=== PATIENT | male | born 1960 | race Caucasian/White ===

== ENCOUNTER 2022-02-09 16:01 | Inpatient (IN) ==
[2022-02-09 16:30] LABS: Basophils # 0.1 10*3/uL (0.0-0.2); Basophils % 0.3 % (0.0-0.8); Hemoglobin 19.6 GM/DL (14.0-18.0); Immature Granulocytes % 1.2 %; Immature Granulocytes Absolute 0.22 #; Lymphocytes % 5.3 % (21.2-54.2); Mean Corpuscular HGB Conc 31.2 GM/DL (32-36); Mean Platelet Volume 10.4 FL (9.6-12.0); Monocytes # 1.4 10*3/uL (0.11-0.8); Monocytes % 7.5 % (1.7-12.7); Neutrophils % 85.7 % (38.7-73.9); Platelet Count 209 T/CUMM (130-400); Red Blood Count 7.06 MC/CUMM (3.8-5.5); Red Cell Distribution Width 14.2 % (9.3-17.3); White Blood Count 18.9 T/CUMM (4-12)
[2022-02-09 16:35] LABS: Hematocrit 62.8 VOL% (42.0-52.0)
[2022-02-09 16:43] LABS: Alanine Aminotransferase 43 U/L (16-61); Albumin > 5.0 G/DL (3.4-5.0); Alkaline Phosphatase 95 U/L (45-117); Aspartate Amino Transferase 19 U/L (0-37); Blood Urea Nitrogen 25 MG/DL (7-18); Calcium 9.8 MG/DL (8.5-10.1); Carbon Dioxide 12 MMOL/L (21-32); Chloride 105 MMOL/L (98-107); Glucose 194 MG/DL (74-106); Osmolality,Calculated 283.7 MOS/KG (273-304); Potassium 5.2 MMOL/L (3.5-5.1); Sodium 138 MMOL/L (136-145); Total Protein 8.8 G/DL (6.4-8.2)
[2022-02-09] MEDS ORDERED: ONDANSETRON 4 MG/2 ML VIAL IV STA ×2 (18:18→21:13)
[2022-02-09] MEDS ORDERED: SODIUM CHLORIDE 0.9% 2,000 ML IV STA (18:18)
[2022-02-09] MEDS ORDERED: PANTOPRAZOLE 40 MG VIAL IV STA (18:21)
[2022-02-09 18:46] LABS: Arterial Base Excess iSTAT -19 MMOL/L (-2.5-2.5); Arterial Bicarbonate iSTAT 7.5 MMOL/L (20-26); Arterial O2 Saturation iSTAT 97 % (95-100); Arterial PCO2 iSTAT 22 MM HG (35-48); Arterial PO2 iSTAT 111 MM HG (80-95); Arterial Total CO2 iSTAT 8 MMO/L (23-27)
[2022-02-09 19:32] LABS: Bacteria,Urine Occasional /HPF (Few); Bilirubin,Urine Negative (Negative); Blood, Urine Moderate mg/dL (Negative); Glucose,Urine (UA) >=500 mg/dL (Negative); Hyaline Casts,Urine 16 /LPF (0-3); Ketones,Urine 80 mg/dL (Negative); Mucus,Urine Occasional /LPF (Occasional); Nitrite,Urine Negative (Negative); Protein,Urine 100 mg/dL (Negative); RBC,Urine 6 /HPF (0-4); Urine Appearance CLEAR (Clear); Urine Color Yellow (Yellow); Urine Specific Gravity 1.015 (1.001-1.035); Urine Urobilinogen < 2.0 eU/dL (<2.0)
[2022-02-09 21:25] LABS: Risk Ratio 2.47; VLDL Cholesterol 28.2 MG/DL
[2022-02-09] MEDS ORDERED: POTASSIUM CHLORIDE RIDER 10 MEQ/100 ML PREMIX IV PRN (21:31)
[2022-02-09] MEDS ORDERED: SODIUM PHOSPHATE INJ 22.5 MMOL in SODIUM CHLORIDE 0.9% 250 ML IV PRN (21:31)
[2022-02-09] MEDS ORDERED: SODIUM BICARB INJ 100 MEQ in STERILE WATER INJ 400 ML IV PRN (21:31)
[2022-02-09] MEDS ORDERED: MAGNESIUM SULF RIDER 2 GM/50 ML PREMIX IV PRN (21:31)
[2022-02-09] MEDS ORDERED: MAGNESIUM SULF RIDER 4 GM/100 ML PREMIX IV PRN (21:31)
[2022-02-09] MEDS ORDERED: ALBUTEROL 2.5 MG/3 ML NEB RESP TX PRN (21:36)
[2022-02-09] MEDS ORDERED: ONDANSETRON 4 MG/2 ML VIAL IV PRN (21:36)
[2022-02-09] MEDS ORDERED: ACETAMINOPHEN 325 MG TABLET PO PRN (21:36)
[2022-02-09] MEDS ORDERED: DOCUSATE SODIUM 100 MG CAPSULE PO PRN (21:36)
[2022-02-09] MEDS ORDERED: DEXTROSE 10% 250 ML BAG IV PRN ×2 (21:39→21:40)
[2022-02-10] MEDS: SODIUM CHLORIDE 0.9% 1,000 ML IV SCH ×2 (00:09→02:20)
[2022-02-10 00:20] LABS: Calcium 8.3 MG/DL (8.5-10.1); Osmolality,Calculated 289.3 MOS/KG (273-304); Potassium 5.2 MMOL/L (3.5-5.1)
[2022-02-10] MEDS: INSULIN REGULAR 100 UNIT/ML SUBCUT SCH ×4 (01:30→16:10)
[2022-02-10] MEDS ORDERED: SODIUM CHLORIDE 0.9% 1,000 ML IV SCH (03:00)
[2022-02-10 04:27] LABS: Basophils % 0.1 % (0.0-0.8); Eosinophils % 0.1 % (0.00-10.9); Hematocrit 45.4 VOL% (42.0-52.0); Hemoglobin 14.8 GM/DL (14.0-18.0); Immature Granulocytes % 0.7 %; Immature Granulocytes Absolute 0.09 #; Lymphocytes # 0.7 10*3/uL (1.4-4.0); Lymphocytes % 5.4 % (21.2-54.2); Mean Corpuscular HGB Conc 32.6 GM/DL (32-36); Mean Corpuscular Volume 86.8 FL (87-102); Mean Platelet Volume 10.4 FL (9.6-12.0); Monocytes # 1.7 10*3/uL (0.11-0.8); Monocytes % 12.7 % (1.7-12.7); Platelet Count 166 T/CUMM (130-400); Red Blood Count 5.23 MC/CUMM (3.8-5.5); Red Cell Distribution Width 13.5 % (9.3-17.3); White Blood Count 13.2 T/CUMM (4-12)
[2022-02-10 04:30] LABS: ABG Base Excess -10.9 MMOL/L (-2.5-2.5); ABG HCO3 16.1 MMOL/L (20-26); ABG PCO2 27.9 MM HG (35-48); ABG PH 7.311 (7.35-7.45); ABG TCO2 12.1 MMOL/L (23-27)
[2022-02-10 04:49] LABS: Phosphorous 1.8 MG/DL (2.5-4.9)
[2022-02-10 04:51] LABS: Albumin 3.2 G/DL (3.4-5.0); Bilirubin,Total 0.6 MG/DL (0.20-1.00); Calcium 7.3 MG/DL (8.5-10.1); Potassium 4.2 MMOL/L (3.5-5.1)
[2022-02-10] MEDS ORDERED: GLUCAGON 1 MG VIAL IM PRN ×2 (07:22→11:28)
[2022-02-10] MEDS ORDERED: DEXTROSE 10% 250 ML BAG IV PRN (07:28)
[2022-02-10 08:53] LABS: Calcium 7.7 MG/DL (8.5-10.1); Osmolality,Calculated 285.3 MOS/KG (273-304)
[2022-02-10] MEDS ORDERED: INSULIN GLARGINE 100 UNIT/ML SUBCUT ONE (09:00)
[2022-02-10] MEDS: PANTOPRAZOLE 40 MG TABLET PO SCH (09:40)
[2022-02-10] MEDS: ENOXAPARIN 40 MG/0.4 ML SYRINGE SUBCUT SCH (09:40)
[2022-02-10] MEDS: SODIUM CHLORIDE 0.45% 1,000 ML IV SCH ×2 (09:46→16:10)
[2022-02-10] MEDS ORDERED: DEXTROSE 50% 25 GM/50 ML VIAL IV PRN (11:28)
[2022-02-10 12:43] LABS: Calcium 7.6 MG/DL (8.5-10.1); Potassium 4.5 MMOL/L (3.5-5.1)
[2022-02-10 17:13] LABS: Calcium 7.9 MG/DL (8.5-10.1); Potassium 4.1 MMOL/L (3.5-5.1)
[2022-02-10 21:05] LABS: Calcium 7.9 MG/DL (8.5-10.1); Osmolality,Calculated 281.5 MOS/KG (273-304); Potassium 3.9 MMOL/L (3.5-5.1)
[2022-02-11] MEDS: INSULIN REGULAR 100 UNIT/ML SUBCUT SCH ×3 (00:32→13:29)
[2022-02-11] MEDS: SODIUM CHLORIDE 0.45% 1,000 ML IV SCH ×2 (02:36→10:53)
[2022-02-11 05:47] LABS: Basophils % 0.5 % (0.0-0.8); Eosinophils # 0.1 10*3/uL (0.0-0.87); Eosinophils % 1.2 % (0.00-10.9); Hemoglobin 13.9 GM/DL (14.0-18.0); Immature Granulocytes % 0.5 %; Immature Granulocytes Absolute 0.03 #; Lymphocytes # 1.1 10*3/uL (1.4-4.0); Lymphocytes % 17.1 % (21.2-54.2); Mean Corpuscular HGB Conc 33.1 GM/DL (32-36); Mean Corpuscular Volume 85.9 FL (87-102); Mean Platelet Volume 10.7 FL (9.6-12.0); Monocytes # 0.7 10*3/uL (0.11-0.8); Monocytes % 11.2 % (1.7-12.7); Neutrophils % 69.5 % (38.7-73.9); Platelet Count 134 T/CUMM (130-400); Red Blood Count 4.89 MC/CUMM (3.8-5.5); Red Cell Distribution Width 13.7 % (9.3-17.3); White Blood Count 6.6 T/CUMM (4-12)
[2022-02-11 05:58] LABS: Bilirubin,Total 0.4 MG/DL (0.20-1.00); Calcium 8.2 MG/DL (8.5-10.1); Potassium 3.6 MMOL/L (3.5-5.1); Total Protein 5.5 G/DL (6.4-8.2)
[2022-02-11 06:06] LABS: Albumin 3.1 G/DL (3.4-5.0); Bilirubin,Direct 0.16 MG/DL (0.0-0.20); Bilirubin,Indirect 0.2 MG/DL (0.0-1.0); Bilirubin,Total 0.4 MG/DL (0.20-1.00); Calcium 8.2 MG/DL (8.5-10.1); Potassium 4.2 MMOL/L (3.5-5.1); Thyroid Stimulating Hormone 1.54 uIU/ml (0.358-3.74); Total Protein 5.2 G/DL (6.4-8.2)
[2022-02-11 06:51] LABS: Platelet Estimate Adequate
[2022-02-11 06:52] LABS: Anisocytosis 1+
[2022-02-11] MEDS ORDERED: TAMSULOSIN 0.4 MG CAPSULE PO SCH (09:00)
[2022-02-11] MEDS ORDERED: INSULIN GLARGINE 100 UNIT/ML SUBCUT SCH (09:00)
[2022-02-11] MEDS ORDERED: LOSARTAN 50 MG TABLET PO SCH (09:00)
[2022-02-11] MEDS ORDERED: EZETIMIBE 10 MG TABLET PO SCH (09:00)
[2022-02-11] MEDS ORDERED: PIOGLITAZONE 15 MG TABLET PO SCH (09:00)
[2022-02-11] MEDS: ENOXAPARIN 40 MG/0.4 ML SYRINGE SUBCUT SCH (10:05)
[2022-02-11] MEDS: PANTOPRAZOLE 40 MG TABLET PO SCH (10:08)
[2022-02-11 11:45] VITALS: BP 134/71
[2022-02-11] MEDS ORDERED: ROSUVASTATIN 20 MG TABLET PO SCH (21:00)
[2022-02-12] MEDS ORDERED: INJECTOR SUBCUT SCH (11:31)
[2022-02-12] MEDS ORDERED: SEMAGLUTIDE SUBCUT SCH (11:31)
== END 2022-02-11 11:50 | disposition home or self-care (01) | DRG 638 ==
LOC: N.ED 16:01 → N.EDINP 20:44 → SUATTDRO 20:44 → N.ICU 22:56 → N.5E 02-10 14:07
PROVIDERS: ADMIT Internal Medicine; ATTEND Hospitalist